=== PATIENT | male | born 1960 | race Caucasian/White ===

== ENCOUNTER 2018-07-21 15:30 | Outpatient (CLI) | payer BC, SELFPAY ==
[2018-07-21 16:31] LABS: Abs Immature Grans 0.05 k/cumm (0.0-0.09); Absolute Basophil Count 0.02 k/cumm (0.0-0.2); Absolute Eosinophil Count 0.12 k/cumm (0.0-0.7); Absolute Lymphocyte Count 1.86 k/cumm (1.2-3.4); Absolute Monocyte Count 0.78 k/cumm (0.11-0.7); Absolute Neutrophil Count 5.66 k/cumm (1.2-6.7); Basophils % 0.2; Eosinophils % 1.4; HGB 12.7 g/dL (13.5-17.5); Immature Grans % 0.6; Lymphocytes % 21.9; Mean Corp. HGB Concentration 33.4 g/dL (32.0-36.0); Mean Corpuscular Hemoglobin 33.4 pg (27.0-33.0); Mean Platelet Volume 9.8 fL (8.0-11.0); Monocytes % 9.2; Neutrophils % 66.7; Platelet Count 240 x1000/uL (130-400); RBC Distribution Width 12.9 % (11.8-14.1); White Blood Cell Count 8.49 k/cumm (4.4-10.8)
[2018-07-21 17:05] LABS: ALT 34 U/L (12-78); AST 34 U/L (15-37); Albumin 3.1 g/dL (3.4-5.0); Alkaline Phosphatase 51 U/L (46-116); Anion Gap 8.8 mmol/L (3-11); BUN 15 mg/dL (7-18); Bilirubin, Total 0.5 mg/dL (0.2-1.0); CO2 26.2 mmol/L (21.0-32.0); CREATININE 0.92 mg/dL (0.70-1.30); Calcium 8.5 mg/dL (8.5-10.1); Chloride 102 mmol/L (98-107); Glucose 92 mg/dL (70-100); Sodium 137 mmol/L (136-145); Total Protein 6.6 g/dL (6.4-8.2)
[2018-07-25 10:53] LABS: Vitamin B12 792 pg/ml (211-911)
== END 2018-07-21 15:50 ==
PROVIDERS: PCP Family Medicine; Visit Provider Family Medicine
DX: Z00.00 Encounter for general adult medical examination without abnormal findings (principal); K21.9 Gastro-esophageal reflux disease without esophagitis; K52.9 Noninfective gastroenteritis and colitis, unspecified
CPT/HCPCS: 36415; 80053; 82607; 85025

== ENCOUNTER 2019-07-22 10:30 | Outpatient (CLI) | payer BC, SELFPAY ==
[2019-07-22 12:33] LABS: HCT 38.7 % (40.0-50.0); HGB 12.8 g/dL (13.5-17.5); Mean Corp. HGB Concentration 33.1 g/dL (32.0-36.0); Mean Corpuscular Hemoglobin 34.4 pg (27.0-33.0); Mean Platelet Volume 9.8 fL (8.0-11.0); Platelet Count 258 x1000/uL (130-400); RBC 3.72 m/cumm (4.50-6.00); RBC Distribution Width 13.5 % (11.8-14.1); White Blood Cell Count 7.59 k/cumm (4.4-10.8)
[2019-07-22 12:59] LABS: ALT 39 U/L (16-63); AST 38 U/L (15-37); Albumin 3.3 g/dL (3.4-5.0); Alkaline Phosphatase 66 U/L (46-116); Anion Gap 9.1 mmol/L (3-11); BUN 13 mg/dL (7-18); Bilirubin, Total 0.7 mg/dL (0.2-1.0); CO2 25.9 mmol/L (21.0-32.0); CREATININE 0.99 mg/dL (0.70-1.30); Calcium 8.8 mg/dL (8.5-10.1); Chloride 100 mmol/L (98-107); Cholesterol 254 mg/dL (<200); Glucose 104 mg/dL (74-106); Potassium 3.9 mmol/L (3.5-5.1); Sodium 135 mmol/L (136-145); TSH 1.26 uIU/mL (0.36-3.74); Total Protein 6.4 g/dL (6.4-8.2); Triglyceride 64 mg/dL (<150); Vitamin B12 466 pg/mL (193-986)
[2019-07-22 13:06] LABS: Calculated LDL 90 mg/dL (<100)
[2019-07-22 13:07] LABS: HDL Cholesterol 152 mg/dL (40-60)
== END 2019-07-22 10:50 ==
PROVIDERS: PCP Family Medicine; Visit Provider Family Medicine
DX: Z00.00 Encounter for general adult medical examination without abnormal findings (principal); R63.5 Abnormal weight gain; E53.8 Deficiency of other specified B group vitamins; I10 Essential (primary) hypertension; R94.31 Abnormal electrocardiogram [ECG] [EKG]
CPT/HCPCS: 36415; 80053; 80061; 85027; 82607; 84443

== ENCOUNTER 2019-08-17 00:03 | Outpatient (CLI) | payer BC, SELFPAY ==
--- NOTE | 2019-08-17 07:00 | DI.NM_ITS ---
APPROVED REPORT Exam: Pharmacologic Patient Location: Out-Patient Room/Bed: Stress Nurse: Alicia Noyola RN BMI: 32.88 Baseline Rhythm: Sinus Rhythm Indications: Per patient ???s record from a clinic visit on 07/29/2019: EKG changes with Q waves anter oseptal leads and Q waves inferior leads. Patient also reports hypotensive episode (66/40) with feeli ng of severe malaise and dizziness appriximately 3-4 months ago. Medical History Medical History: Sleep Apnea, GERD, Tachycardia, Severe DJD. Cardiac Medications: Aspirin, Metoprolol Tartrate. Allergies: No known drug allergies Cardiac Risk Factors: FHX of CAD, HTN, Asthma Previous Cardiac Procedures: None Pretest Chest Pain Characteristics: No chest pain Exercise History: Sedentary Physical Disabilities: Legs Lung Sounds: Clear to auscultation Heart Sounds: Regular Stress Test Details Test: Pharmacologic stress testing performed using 0.4 mg of regadenoson per 5 mL given IV over 10 s econds. Nuclear Acquisition: Rest Tc-99m/Stress Tc-99m 1 day Rest Isotope: Tc-99m Sestamibi. Dose: 12.2 Date: 08/17/2019 Injection Time: 0845 Stress Isotope: Tc-99m Sestamibi. Dose: 38.0 Date: 08/17/2019 Injection Time: 0955 HR Resting HR Supine: 82 bpm Max Heart Rate (APMHR): 160 bpm Target HR (85% APMHR): 136 bpm Max HR Achieved: 98 bpm % of APMHR: 61 BP Resting BP Supine: 158/96 mmHg Max BP: 166/90 mmHg ECG Resting ECG: Sinus Rhythm Stress ECG: Sinus Rhythm ST Change: Normal Arrhythmia: None Recovery ECG: Sinus Rhythm Recovery ST Change: Normal Recovery Arrhythmia: None Clinical Stress Symptoms: None reported per patient. Stress ECG Conclusion 1. This was a pharmacological stress test. 2. EKG during stress portion of the exam was nondiagnostic. Protocol Used: Regadenoson Stress Test Summary STAGE HR BP Symptoms NOTES Supine 82 158/96 1 min post Lexiscan injection 95 166/90 3 min post Lexiscan injection 87 160/100 6 min post Lexiscan injection 95 158/96 MPI Conclusion His ejection fraction was 59%: There were no wall motion abnormalities. There is no evidence of inducible ischemia on the imaging portion of this exam. This represents a normal SPECT stress test. Radiologist Interpretation Radiologist Interpretation by: Lion Lyman MD Interpretation Date/Time: 08/17/2019 15:56:53
[2019-08-17] MEDS: Regadenoson 0.4 MG/5 ML SYR IVP (10:19)
[2019-08-17] MEDS: Normal Saline Flush 10 ML SYR IVP (11:07)
== END 2019-08-17 00:23 ==
PROVIDERS: PCP Family Medicine; Visit Provider Family Medicine
DX: R94.31 Abnormal electrocardiogram [ECG] [EKG] (principal); R00.0 Tachycardia, unspecified; I10 Essential (primary) hypertension; K21.9 Gastro-esophageal reflux disease without esophagitis; Z82.49 Family history of ischemic heart disease and other diseases of the circulatory system
CPT/HCPCS: 78452; 93017; J2785

== ENCOUNTER 2019-11-24 12:08 | Outpatient (CLI) | payer BC, SELFPAY ==
--- NOTE | 2019-11-24 14:00 | DI.RAD_ITS ---
EXAM: XR CHEST 2V PA LATERAL CLINICAL HISTORY: Pedal edema, R60.0 TECHNIQUE: COMPARISON: CR PORTABLE CHEST ONE VIEW from 02/07/2014 FINDINGS: The heart is not enlarged. Lungs appear clear. No pleural effusion seen. Multiple vascular clips n oted in the region of the esophageal hiatus. No pleural effusion seen. IMPRESSION: No evidence of acute process.
[2019-11-24 14:45] LABS: Abs Immature Grans 0.11 k/cumm (0.0-0.09); Absolute Basophil Count 0.03 k/cumm (0.0-0.2); Absolute Eosinophil Count 0.11 k/cumm (0.0-0.7); Absolute Lymphocyte Count 1.52 k/cumm (1.2-3.4); Absolute Monocyte Count 0.61 k/cumm (0.11-0.7); Absolute Neutrophil Count 3.05 k/cumm (1.2-6.7); Basophils % 0.6; HCT 34.1 % (40.0-50.0); HGB 11.2 g/dL (13.5-17.5); Mean Corp. HGB Concentration 32.8 g/dL (32.0-36.0); Mean Corpuscular Hemoglobin 34.8 pg (27.0-33.0); Mean Corpuscular Volume 105.9 fL (80-95); Monocytes % 11.2; Neutrophils % 56.2; Platelet Count 249 x1000/uL (130-400); RBC 3.22 m/cumm (4.50-6.00); RBC Distribution Width 17.6 % (11.8-14.1); White Blood Cell Count 5.43 k/cumm (4.4-10.8)
[2019-11-24 14:46] LABS: Bilirubin Negative (Negative); Blood Negative (Negative); Clarity Clear (Clear); Glucose Negative (Negative); Ketones Negative (Negative); Leukocyte Esterase Negative (Negative); Nitrite Negative (Negative)
[2019-11-24 15:30] LABS: Diff Comment RBC Morph Reviewed
[2019-11-24 15:31] LABS: Macrocytosis 1+
[2019-11-24 15:55] LABS: ALT 125 U/L (16-63); AST 143 U/L (15-37); Albumin 2.8 g/dL (3.4-5.0); Alkaline Phosphatase 93 U/L (46-116); Anion Gap 9.1 mmol/L (3-11); BUN 10 mg/dL (7-18); Bilirubin, Total 0.8 mg/dL (0.2-1.0); CO2 25.9 mmol/L (21.0-32.0); CREATININE 0.94 mg/dL (0.70-1.30); Calcium 8.3 mg/dL (8.5-10.1); Chloride 101 mmol/L (98-107); Glucose 109 mg/dL (74-106); NT-proBNP 129 pg/mL (<300); Potassium 3.6 mmol/L (3.5-5.1); Sodium 136 mmol/L (136-145); TSH 1.26 uIU/mL (0.36-3.74); Total Protein 5.7 g/dL (6.4-8.2)
[2019-11-24 23:08] LABS: Folate 18.7 ng/mL (8.6-20.0); Vitamin B12 527 pg/mL (193-986)
== END 2019-11-24 12:28 ==
PROVIDERS: PCP Family Medicine; Visit Provider Family Medicine
DX: R53.83 Other fatigue (principal); R39.11 Hesitancy of micturition; D75.89 Other specified diseases of blood and blood-forming organs; R60.0 Localized edema
CPT/HCPCS: 80053; 71046; 81003; 82607; 82746; 83880; 84443; 85025

== ENCOUNTER 2020-03-20 16:00 | Emergency (ER) | payer BC, SELFPAY ==
[2020-03-20] VITALS (47 sets, daily range): BP systolic 89–145; BP diastolic 46–91; PULSE 70–94; RESP 9–24; TEMP 36.5; O2SAT 92–99
--- NOTE | 2020-03-20 16:00 | DI.CT_ITS ---
EXAM: CT CHEST/ABD/PEL W CLINICAL HISTORY: trauma, fall down 10 stair,altered mentation, +loc. TECHNIQUE: Imaging Protocol: Axial computed tomography images with coronal and sagittal reformatted images were created and reviewed CONTRAST MATERIAL: Intravenous: Omnipaque 350 Contrast volume:100 cc Oral: no COMPARISON: No exams were available for comparison FINDINGS: CHEST: Tracheobronchial tree: Patent where visualized. Mediastinum and [place]: No dominant adenopathy or fluid collection. Pulmonary parenchyma: No consolidation or dominant measurable mass. No architectural distortion. Pleura: No effusion or pneumothorax. Lymph nodes: Within normal limits. Aorta: Thoracic portion non-dilated. Heart: Normal size. Minimal coronary artery calcifications. Bones: Degenerative changes are seen in the spine. ABDOMEN: Liver: Normal density. No measurable mass. Gallbladder and biliary tract: No radiodense calculus or dilation. Pancreas: Normal density, no abnormal calcifications or inflammatory process. Spleen: Normal. Kidneys: Normal size, contour and axis. No radiodense stones or obstructive uropathy. No masses seen. Adrenal glands: No masses seen. Aorta: Abdominal portion non-dilated. Mild calcification. Lymph nodes: Within normal limits. PELVIS: Bladder: Symmetric distention, no gross wall thickening. Bowel: Surgical clips near the GE junction. Diverticulosis. Normal appendix. No obstruction or bow el wall thickening. Peritoneal cavity: No ascites, collection or mesenteric inflammatory response. No free air. Bones: Degenerative changes in the spine. No fracture. Reproductive organs: Within normal limits. Soft tissue hematoma is seen adjacent to the left gluteus kings. IMPRESSION: Soft tissue hematoma adjacent to the left gluteus kings. No evidence of fracture or internal organ injury. RADIATION DOSE DELIVERED: 1,834.43mGy.cm Total DLP DATA REPOSITORY: All CT scans at this facility are submitted to the National Radiology Data Registry (NRDR) Dose Index Registry (DIR) with the [employer] (ACR). RADIATION OPTIMIZATION: All CT scans at this facility use at least one of these dose optimization te chniques: automated exposure control; mA and/or kV adjustment per patient size (includes targeted exa ms where dose is matched to clinical indication); or iterative reconstruction.
--- NOTE | 2020-03-20 16:00 | DI.CT_ITS ---
EXAM: CT HEAD CERVICAL SPINE WO CLINICAL HISTORY: trauma, fall down 10 stair,altered mentation, +loc. TECHNIQUE: Imaging Protocol: Axial computed tomography images with coronal and sagittal reformatted images were created and reviewed COMPARISON: No exams were available for comparison FINDINGS: Head CT Ventricles and Extra axial spaces: Normal in size and morphology for the patient's age. Hemorrhage: None. Cerebral parenchyma: Mild atrophy. No mass or infarct. Midline shift: None. Brainstem/Cerebellum: Normal. Calvarium: Scalp swelling left parietal region.. No fracture. Visualized Paranasal sinuses/Mastoids: Clear. Cervical Spine CT BONES: Vertebral body heights are maintained. Alignment is normal. There is no evidence of acute frac ture. Degenerative disc changes and facet degenerative changes are seen . SOFT TISSUES: No paraspinal hematoma. The airway appears intact. Small right thyroid nodule. No pneumothorax is seen at the lung apices. IMPRESSION: Head CT: No acute abnormality. C-spine CT: Degenerative changes, no acute abnormality. Incidental right thyroid nodule. Ultrasound could be considered for further evaluation. RADIATION DOSE DELIVERED: LINK-TO-SR Total DLP DATA REPOSITORY: All CT scans at this facility are submitted to the National Radiology Data Registry (NRDR) Dose Index Registry (DIR) with the [employer] (ACR). RADIATION OPTIMIZATION: All CT scans at this facility use at least one of these dose optimization te chniques: automated exposure control; mA and/or kV adjustment per patient size (includes targeted exa ms where dose is matched to clinical indication); or iterative reconstruction.
[2020-03-20] MEDS: Lactated Ringers 1,000 ML 150 ML IV (16:05)
--- NOTE | 2020-03-20 16:12 | W.ED.GENAD ---
Discharge Plan Disposition Patient Disposition: HOME Condition: Serious Discharge Details Clinical Impression: Fall down stairs, Scalp hematoma, Thyroid nodule, Contusion of colon, AC separation, Colitis Primary Care Provider: Ankur Strickland ED Provider: Rodriguez Rodriguez Home Meds and New Rx's Prescriptions: No Action aspirin 81 mg tablet,delayed release (DR/EC) 81 mg PO DAILY Qty: 90 RF: 3 metoprolol tartrate 50 mg tablet 25 mg PO BID Qty: 60 RF: 5 furosemide 20 mg tablet 10 mg PO BID PRN (Reason: edema) Qty: 60 RF: 0 albuterol sulfate [Ventolin HFA] 90 mcg/actuation HFA aerosol inhaler 2 puff inhalation Q4H PRN (Reason: shortness of breath or wheezing) Qty: 18 RF: 11 celecoxib [Celebrex] 200 mg capsule 200 mg PO BID Qty: 60 RF: 3 potassium chloride 20 mEq tablet extended release 20 meq PO .QOD PRN (Reason: pedal edema) Qty: 30 RF: 5 cyanocobalamin (vitamin B-12) [Vitamin B-12] 1,000 MCG tablet, sublingual 1 tab Sublingual .3 X WEEKLY RF: 0 Flovent HFA 110 mcg/actuation HFA aerosol inhaler 1 inh IH BID Qty: 12 RF: 2 ferrous gluconate [Fergon] 240 mg (27 mg iron) tablet 240 mg PO DAILY RF: 0 Emergen-C 1,000 MG powder effervescent in packet 1,000 mg PO PRN PRNRF: 0 Cbd Oil 5 mg Sublingual DAILY RF: 0 Discharge Instructions Instructions: Acromioclavicular Separation (ED), Abuse of Alcohol (ED), Scalp Contusion in Adults (ED), Fall Prevention (ED), Colitis (ED) Additional Instructions: Please stop abusing alcohol. Please maintain a clear liquid diet today. You may advance your diet tomorrow morning to soft bland food like rice and then advance further tomorrow evening as tolerated. Use shoulder sling and follow-up with orthopedics. Call for an appointment. Please contact your primary care physician to arrange follow-up. Return to the ER for any worsening or new concerning symptoms. Referrals: [facility] [Provider Group] Ankur Strickland [Primary Care Provider] - Discharge Data Discharge Date/Time-TO BE ENTERED AT DEPARTURE: 03/20/20 22:35 Medical Decision Making <Norbert Mary MD - Last Filed: 04/08/20 18:44> 1700??59-year-old male with history of alcohol dependence here after fall down a flight of stairs with loss of consciousness, now confused, left occipital scalp hematoma noted. Airway intact. Hemodynamically intact. Patient also with left shoulder swelling and tenderness. Consider acute life-threatening intracranial traumatic hemorrhage. Plan to obtain CT of the head. Consider cervical spine fracture, will obtain CT cervical spine. Consider intrathoracic or intra-abdominal acute traumatic surgical process. Will obtain CT imaging. Initial labs reviewed and ethyl alcohol noted to be 250. 1746 --CT of the head interpreted by radiology: IMPRESSION: 1. Left parietal scalp swelling. No radiopaque foreign body. No acute calvarial fracture. 2. No evidence for acute transcortical infarct, acute intracranial hemorrhage, or mass effect. CT of the cervical spine interpreted by radiology: Impression: No acute fracture or traumatic subluxation, right thyroid lobe 1.4 cm hypodense nodule containing coarse calcifications. X-ray of the left shoulder interpreted by radiology: IMPRESSION: Acromioclavicular dissociation with elevated lateral clavicle. This could reflect ligamentous disruption, possibly acromioclavicular and coracoclavicular ligaments. No definite acute fracture. Shoulder is normally located. Plan to apply sling. --CT of the chest was interpreted by radiology: Impression: No acute abnormality in chest. No acute fracture or dislocation. CT of the abdomen pelvis interpreted by radiology: IMPRESSION: 1. In anterior abdomen, there is mural edema and pericolonic stranding in mid to distal transverse colon which could reflect small focal large bowel contusion in setting of blunt trauma. There is no free air or perforation. There is mild pericolonic stranding in large bowel distal to it which could reflect mild colitis. 2. No intra-abdominal hematoma. 3. Diffuse diverticulosis of large bowel. 4. No acute fracture or subluxation. No dislocation. --I reassessed the patient notes he has had recent GI upset with loose stool after eating a large amount of lasagna last night. He has no abdominal pain and continues to have no abdominal tenderness. Patient is much more alert and oriented. Attempted to ambulate the patient he was unsteady on his feet. Plan to give IV fluid and reassess patient for likely discharge. <Rodriguez Rodriguez MD - Last Filed: 03/20/20 22:27> pt now able to walk with steady gait, suspect his earlier difficulty with ambulation could be from mild concussion and also alcohol intoxication. He is hd stable with no abdominal tenderness, will d/c home and have him f/u with pcp, return precautions given HPI <Norbert Mary MD - Last Filed: 04/08/20 18:44> General Mode of arrival: EMS. Date/Time Provider Initiated Documentation: 03/20/20 16:09. Limitations to Documentation: altered mental status. Information obtained by: patient and EMS. HPI Narrative: 59-year-old male with prior history of alcohol dependence, here after unwitnessed fall down 10 stairs with complaint of head pain. Patient is altered which limits history and review of systems. EMS notes that they responded to seen to find patient at bottom of the stairs. He had lost consciousness. A c-collar was applied and patient refused stretcher and walked up the stairs. Patient has been confused in route to [facility]. Related Data Home Medications Medication Instructions Recorded Confirmed cyanocobalamin (vitamin B-12) 1 tab SUBLINGUAL .3 X WEEKLY 09/16/12 03/30/20 [Vitamin B-12] Cbd Oil 5 mg SUBLINGUAL DAILY 09/19/17 03/30/20 Emergen-C 1,000 mg PO PRN PRN 09/19/17 03/30/20 aspirin 81 mg tablet,delayed 81 mg PO DAILY #90 tab 07/22/19 03/30/20 release metoprolol tartrate 50 mg tablet 25 mg PO BID #60 tab 07/22/19 03/30/20 fluticasone propionate 110 1 inh IH BID #12 gm 11/18/19 03/30/20 mcg/actuation HFA aerosol inhaler potassium chloride 20 mEq 20 meq PO .QOD PRN #30 tab 12/29/19 03/30/20 tablet,extended release albuterol sulfate 90 mcg/actuation 2 puff INHALATION Q4H PRN #18 g 03/28/20 03/30/20 aerosol inhaler furosemide 20 mg tablet 10 mg PO BID PRN #60 tab 03/28/20 03/30/20 celecoxib 200 mg capsule 200 mg PO BID #60 cap 03/30/20 03/30/20 ferrous gluconate 240 mg (27 mg 240 mg PO DAILY 03/31/20 iron) tablet Previous Rx's Medication Instructions Recorded aspirin 81 mg tablet,delayed 81 mg PO DAILY #90 tab 07/22/19 release metoprolol tartrate 50 mg tablet 25 mg PO BID #60 tab 07/22/19 fluticasone propionate 110 1 inh IH BID #12 gm 11/18/19 mcg/actuation HFA aerosol inhaler potassium chloride 20 mEq 20 meq PO .QOD PRN #30 tab 12/29/19 tablet,extended release albuterol sulfate 90 mcg/actuation 2 puff INHALATION Q4H PRN #18 g 03/28/20 aerosol inhaler furosemide 20 mg tablet 10 mg PO BID PRN #60 tab 03/28/20 celecoxib 200 mg capsule 200 mg PO BID #60 cap 03/30/20 Allergies Allergy/AdvReac Type Severity Reaction Status Date / Time No Known Allergies Allergy Verified 03/30/20 09:05 General Stated Complaint: Trauma CORBIN: 1 Review of Systems <Norbert Mary MD - Last Filed: 04/08/20 18:44> Narrative: Review of systems limited secondary to confusion and altered mental status Constitutional Constitutional: Denies fever(s) Cardiovascular Cardiovascular: Denies chest pain Gastrointestinal Gastrointestinal: Denies abdominal pain Musculoskeletal Musculoskeletal: Reports arthralgias (Left shoulder) PFSH <Norbert Mary MD - Last Filed: 04/08/20 18:44> Medical History Alcohol dependence HTN (hypertension) Surgical History Colonoscopy - MAC (09/23/17) GASTRECTOMY (~1976) PARTIAL laparoscopic ventral herniorrhaphy with lysis of adhesions (03/27/16) Family History Mother No problems noted. Father Diabetes Essential hypertension Brother Colon cancer Maternal Grandfather , 79 Heart disease Stroke Paternal Grandfather , 75 Heart disease Asthma Maternal Grandmother , 93 Pulmonary fibrosis Heart disease Stroke Paternal Grandmother , 72 Diabetes Heart disease Brother No problems noted. Son No problems noted. Social History Smoking/Tobacco Use Status: Former Tobacco Use Quit Date: 06/03/87 Smoking risk assessment performed?: Yes Alcohol Intake: current Alcohol Intake frequency: 3 or more drinks per day Alcohol type: beer Drug use: Rarely Substance use type: marijuana Counseling given: No Counseling provided: none Caregiver/Support person: Yes Household members: spouse Housing: house Communication Needs: None Pets and animals: No Sexually active: No Do you think of yourself as: straight/heterosexual Current gender identity: male What is your relationship status?: How often do you talk on the phone with friends or family?: three or more times per week How often do you get together with friends or relatives?: three or more times per week How often do you attend adventist or druze services?: 1-3 times per year Do you belong to any clubs or organized social groups?: no Panel score (0-1 are the most socially isolated patients): 2 What type of physical activity do you participate in: bicycling and weight lifting Duration: 15-30 minutes/day Frequency: 3-4 times per week Ladan/Tenriism: Baptist Special ladan needs: No Seatbelt use: always Helmet use: Yes Helmet use: always 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 Exam <Norbert Mary MD - Last Filed: 04/08/20 18:44> Const General: cooperative and other (Upset) Orientation: alert and awake HENMT Head: no Hightower's sign, no palpable skull fracture, no raccoon eyes, No periorbital ecchymosis and other (Hematoma left occipital scalp) General nose exam: external nose normal Face and sinus: normal facial exam Mouth: moist mucous membranes Throat: posterior oropharynx normal Eyes Conjunctivae: normal conjunctivae Sclera: normal sclerae Pupils: PERRL EOM: EOM intact bilaterally Neck Neck: trachea midline and supple Resp Auscultation: clear to auscultation bilaterally, no rales, no rhonchi and no wheezes Cardio Jugular venous pressure: no JVD Rate: regular rate and not tachycardic Rhythm: regular rhythm GI Palpation: soft, not firm, no guarding, no masses, not rigid and nontender Back/Spine/Pelvis Cervical Spine: collar present and No cervical spinal tenderness Thoracic/Lumbar Spine: thoracic and lumbar spine normal to inspection, No thoracic spinal tenderness and No lumbar spinal tenderness Skin General skin exam: no rashes or lesions noted Neuro General: patient alert, patient awake, oriented Patient Orientation: Person, Place and Confused and tone normal Cognition: abnormal cognition Motor: muscle tone normal throughout and strength 5/5 throughout Sensory Exam: no sensory deficits noted Extrem General: no edema Psych Appearance: grossly normal Mental Status: mental status grossly normal Speech and Movement: speech and movement normal Course <Norbert Mary MD - Last Filed: 04/08/20 18:44> Vital Signs Vital signs: Vital Signs Temperature 36.5 C 03/20/20 16:04 Pulse 80 03/20/20 16:04 Respiratory Rate 16 03/20/20 16:04 Blood Pressure 135/80 03/20/20 16:04 Pulse Oximetry 97 03/20/20 16:04 Temperature 36.5 C 03/20/20 16:04 Temperature Source Skin 03/20/20 16:04 Pulse 80 03/20/20 16:04 Respiratory Rate 16 03/20/20 16:04 Respiratory Effort Non-Labored 03/20/20 16:04 Blood Pressure 135/80 03/20/20 16:04 Blood Pressure Position Supine 03/20/20 16:04 Pulse Oximetry 97 03/20/20 16:04 Oxygen Delivery Method Room Air 03/20/20 16:04 Oxygen Flow Rate 0 03/20/20 16:04 Pain Level 4 03/20/20 16:04 Sign Out <Norbert Mary MD - Last Filed: 04/08/20 18:44> Sign Out Data: Sign Out Comment: Reassess patient for disposition. Plan to ensure patient can ambulate and is clinically sober with no abdominal pain or tenderness and remains hemodynamically stable. Last updated by Norbert Mary MD at 03/20/20 20:43
[2020-03-20 16:26] LABS: Abs Immature Grans 0.06 10^3/uL (0.0-0.06); Absolute Basophil Count 0.03 10^3/uL (0.0-0.2); Absolute Eosinophil Count 0.17 10^3/uL (0.0-0.7); Absolute Lymphocyte Count 2.15 10^3/uL (1.2-3.4); Absolute Monocyte Count 0.61 10^3/uL (0.1-0.8); Basophils % 0.3; Eosinophils % 1.8; HCT 40.6 % (40.0-50.0); HGB 13.6 g/dL (13.5-17.5); Immature Grans % 0.6; Lymphocytes % 23.1; MCH 30.8 pg (27.0-33.0); MCHC 33.5 % (32.0-36.0); MCV 91.9 fL (80-95); MPV 9.6 fL (8.0-11.0); Monocytes % 6.5; Neutrophils % 67.7; Nucleated RBC 0 %; Platelet Count 268 10^3/uL (130-400); RBC 4.42 10^6/uL (4.36-5.78); RDW 12.9 % (11.8-14.1); RDW-SD 43.4 fL; WBC 9.32 10^3/uL (4.4-10.8)
[2020-03-20] MEDS: Omnipaque 350 MG/ML 100 ML BTL IJ (16:31)
[2020-03-20] MEDS: Normal Saline - Diluent 50 ML VIAL IV (16:32)
--- NOTE | 2020-03-20 16:47 | DI.RAD_ITS ---
EXAM: XR SHOULDER LT COMPLETE 2+V CLINICAL HISTORY: trauma, fall down 10 stair, pain. TECHNIQUE: 2D digital imaging was performed. COMPARISON: No exams were available for comparison FINDINGS: BONES: No acute fracture is present. No bony destructive lesion is seen. JOINTS: The clavicle projects superior to the acromion, consistent with acromioclavicular separation. The coracoclavicular distance is mildly widened. The glenohumeral joint appears intact. SOFT TISSUE: Normal. IMPRESSION: AC separation. DATA REPOSITORY: RADIATION DOSE DELIVERED:
[2020-03-20 16:48] LABS: ALT 28 U/L (16-63); AST 18 U/L (15-37); Albumin 3.4 g/dL (3.4-5.0); Alkaline Phosphatase 66 U/L (46-116); Anion Gap 9.2 mmol/L (3-11); BUN 12 mg/dL (7-18); Bilirubin, Total 0.7 mg/dL (0.2-1.0); CO2 29.8 mmol/L (21.0-32.0); CREATININE 0.98 mg/dL (0.70-1.30); Calcium 8.7 mg/dL (8.5-10.1); Chloride 98 mmol/L (98-107); Glucose 108 mg/dL (74-106); Potassium 3.8 mmol/L (3.5-5.1); Sodium 137 mmol/L (136-145); Total Protein 7.1 g/dL (6.4-8.2)
[2020-03-20 16:50] LABS: ETHANOL BLOOD 250.7 mg/dL (<3)
[2020-03-20] MEDS: Normal Saline Flush 10 ML SYR IVP (17:00)
--- NOTE | 2020-03-20 17:03 | DI.VRAD_ITS ---
PROCEDURE INFORMATION: Exam: XR Left Shoulder Exam date and time: 03/20/2020 4:38 PM Age: 59 years old Clinical indication: Injury or trauma; Fall; Blunt trauma (contusions or hematomas); Shoulder; Left TECHNIQUE: Imaging protocol: XR Left shoulder. Views: 2 or more views. COMPARISON: No relevant prior studies available. FINDINGS: Bones/joints: There is acromioclavicular dislocation with elevated lateral clavicle. This could reflect ligamentous disruption, possibly acromioclavicular and coracoclavicular ligaments. Shoulder is normally located. There is no acute fracture. Lungs: Visualized lungs are clear. Soft tissues: There is subjacent soft tissue swelling, most pronounced superior to lateral clavicle. IMPRESSION: Acromioclavicular dissociation with elevated lateral clavicle. This could reflect ligamentous disruption, possibly acromioclavicular and coracoclavicular ligaments. No definite acute fracture. Shoulder is normally located. Dictated and Authenticated by: Reji Clarke MD. Ordering:LIBRA Toussaint MD
--- NOTE | 2020-03-20 17:08 | DI.VRAD_ITS ---
PROCEDURE INFORMATION: Exam: CT Head Without Contrast Exam date and time: 03/20/2020 4:22 PM Age: 59 years old Clinical indication: Injury or trauma; Fall; Blunt trauma (contusions or hematomas); With loss of consciousness; Not specified TECHNIQUE: Imaging protocol: Computed tomography of the head without contrast. COMPARISON: No relevant prior studies available. FINDINGS: Brain: Age-related involutional changes and chronic microvascular ischemic disease. No evidence for acute transcortical infarct. No mass effect or midline shift. No extra-axial collection. No acute intracranial hemorrhage. Basal cisterns are patent. Cerebral ventricles: No ventriculomegaly. Bones/joints: No acute calvarial fracture. Paranasal sinuses: Visualized sinuses are unremarkable. No fluid levels. Mastoid air cells: Visualized mastoid air cells are well aerated. Soft tissues: Left parietal scalp swelling. No radiopaque foreign body. IMPRESSION: 1. Left parietal scalp swelling. No radiopaque foreign body. No acute calvarial fracture. 2. No evidence for acute transcortical infarct, acute intracranial hemorrhage, or mass effect. PROCEDURE INFORMATION: Exam: CT Cervical Spine Without Contrast Exam date and time: 03/20/2020 4:22 PM Age: 59 years old Clinical indication: Injury or trauma; Fall; Blunt trauma (contusions or hematomas); With loss of consciousness; Not specified TECHNIQUE: Imaging protocol: Computed tomography images of the cervical spine without contrast. COMPARISON: No relevant prior studies available. FINDINGS: Vertebrae: No acute fracture or traumatic subluxation. No spondylolisthesis. The atlantooccipital and atlantoaxial articulations are intact. Facet joint alignments are maintained. Discs/Spinal canal/Neural foramina: Age-related degenerative disc disease. Multilevel degenerative changes of the cervical spine. Other bones/joints: Occipital condyles are intact. Prevertebral Space: No prevertebral soft tissue swelling. Soft tissues: Unremarkable. Thyroid: Right thyroid lobe 1.4 cm hypodense nodule containing coarse calcifications. Lungs: Lung apices are normal. IMPRESSION: No acute fracture or traumatic subluxation. Dictated and Authenticated by: Robert Thao MD. Ordering:LIBRA Toussaint MD
--- NOTE | 2020-03-20 17:56 | DI.VRAD_ITS ---
PROCEDURE INFORMATION: Exam: CT Chest With Contrast Exam date and time: 03/20/2020 4:28 PM Age: 59 years old Clinical indication: Injury or trauma; Fall; Upper; Blunt trauma (contusions or hematomas) TECHNIQUE: Imaging protocol: Computed tomography of the chest with intravenous contrast. COMPARISON: No relevant prior studies available. FINDINGS: Lungs: There is mild apical pleuroparenchymal thickening. There is left basilar atelectasis. Pleural space: Unremarkable. No pneumothorax. No pleural effusion. Heart: Unremarkable. No cardiomegaly. No pericardial effusion. Mediastinal space: There are surgical changes in gastroesophageal junction. Aorta: Unremarkable. No aortic aneurysm. Lymph nodes: Unremarkable. No enlarged lymph nodes. Bones/joints: Osseous structures demonstrate no acute abnormality. Soft tissues: Unremarkable. IMPRESSION: 1. No acute abnormality in chest. 2. No acute fracture or dislocation. PROCEDURE INFORMATION: Exam: CT Abdomen And Pelvis With Contrast Exam date and time: 03/20/2020 4:28 PM Age: 59 years old Clinical indication: Injury or trauma; Fall; Upper; Blunt trauma (contusions or hematomas) TECHNIQUE: Imaging protocol: Computed tomography of the abdomen and pelvis with intravenous contrast. COMPARISON: No relevant prior studies available. FINDINGS: Mediastinal space: There is small hiatal hernia. Liver: Normal. No mass. Gallbladder and bile ducts: Normal. No calcified stones. No ductal dilation. Pancreas: Normal. No ductal dilation. Spleen: Normal. No splenomegaly. Adrenals: Normal. No mass. Kidneys and ureters: Normal. No hydronephrosis. Stomach and bowel: There is diffuse diverticulosis of large bowel, most pronounced in sigmoid colon. There is focal pericolonic fat stranding and mural edema in mid to distal transverse colon (image 55 series 4). There is mild diffuse stranding in large bowel, distal to this. Appendix: Appendix is normal. Intraperitoneal space: Unremarkable. No free air. No significant fluid collection. Vasculature: Unremarkable. No abdominal aortic aneurysm. Lymph nodes: Unremarkable. No enlarged lymph nodes. Urinary bladder: Unremarkable as visualized. Reproductive: Unremarkable as visualized. Bones/joints: There are degenerative changes in lumbar spine. There is no focal lytic or blastic lesion. Soft tissues: Unremarkable. IMPRESSION: 1. In anterior abdomen, there is mural edema and pericolonic stranding in mid to distal transverse colon which could reflect small focal large bowel contusion in setting of blunt trauma. There is no free air or perforation. There is mild pericolonic stranding in large bowel distal to it which could reflect mild colitis. 2. No intra-abdominal hematoma. 3. Diffuse diverticulosis of large bowel. 4. No acute fracture or subluxation. No dislocation. Dictated and Authenticated by: Reji Clarke MD. Ordering:LIBRA Toussaint MD
--- NOTE | 2020-03-20 19:54 | NUR.NOTE ---
Nursing Note:C-Collar removed by Dr. Mary. PO fluids given to patient. Patient talking to to get phone number of friend to pick him up.
== END 2020-03-20 22:35 | disposition home or self-care (01) ==
PROVIDERS: Student in an Organized Health Care Education/Training Program; Emergency Provider Emergency Medicine; PCP Family Medicine
DX: S00.03XA Contusion of scalp, initial encounter (principal); S36.521A Contusion of transverse colon, initial encounter; S43.102A Unspecified dislocation of left acromioclavicular joint, initial encounter; W10.8XXA Fall (on) (from) other stairs and steps, initial encounter; K52.9 Noninfective gastroenteritis and colitis, unspecified; R93.7 Abnormal findings on diagnostic imaging of other parts of musculoskeletal system; F10.220 Alcohol dependence with intoxication, uncomplicated; Y90.8 Blood alcohol level of 240 mg/100 ml or more; I10 Essential (primary) hypertension
CPT/HCPCS: 36415; 74177; 80053; 86850; 86900; 86901; 96360; 96361; 99285; 70450; 71260; 72125; 73030; 80320; 85025; 85610; J3490; L3650

== ENCOUNTER 2020-03-24 15:44 | Emergency (ER) | payer BC, SELFPAY ==
[2020-03-24 15:47] VITALS: BP 135/78; PULSE 75; RESP 18; TEMP 36.6; O2SAT 99
--- NOTE | 2020-03-24 16:17 | ED.GENADUL_ITS ---
Discharge Plan Disposition Patient Disposition: HOME Condition: Stable Discharge Details Clinical Impression: Hematoma and contusion Primary Care Provider: Ankur Strickland ED Provider: Pb Patricio Home Meds and New Rx's Prescriptions: Continued aspirin 81 mg tablet,delayed release (DR/EC) 81 mg PO DAILY Qty: 90 RF: 3 metoprolol tartrate 50 mg tablet 25 mg PO BID Qty: 60 RF: 5 colestipol 1 gram tablet 5 gm PO ONCE Qty: 150 RF: 11 furosemide 20 mg tablet 20 mg PO QAM PRN (Reason: edema) Qty: 60 RF: 5 potassium chloride 20 mEq tablet extended release 20 meq PO .QOD PRN (Reason: pedal edema) Qty: 30 RF: 5 cyanocobalamin (vitamin B-12) [Vitamin B-12] 1,000 MCG tablet, sublingual 1 tab Sublingual .3 X WEEKLY RF: 0 albuterol sulfate [ProAir HFA] 90 mcg/actuation HFA aerosol inhaler 2 puff Inhalation Q4H PRN 60 Days Qty: 8.5 RF: 11 hydrocodone-acetaminophen 5-325 mg tablet 1 tab PO DAILY MDD 5mg Qty: 30 RF: 0 hydrocodone-acetaminophen 5-325 mg tablet 1 tab PO DAILY MDD 1 PRN (Reason: pain) Qty: 30 RF: 0 Flovent HFA 110 mcg/actuation HFA aerosol inhaler 1 inh IH BID Qty: 12 RF: 2 hydrocodone-acetaminophen 5-325 mg tablet 1 tab PO DAILY MDD 5mg PRN (Reason: pain) Qty: 30 RF: 0 Emergen-C 1,000 MG powder effervescent in packet 1,000 mg PO PRN PRNRF: 0 Cbd Oil 5 mg Sublingual DAILY RF: 0 Discharge Instructions Instructions: Hematoma (ED) Additional Instructions: Having some spreading bruising after trauma can be completely normal. Your blood pressure is appropriate at 135/78 and hyour pulse is 75. It is very common for gravity to begin to draw the bruising further South on your body. It can take up to 1-2 months for the hematoma to completely absorb and resolve. Please watch for new or worsening symptoms and return to the ER for any concerns. You may find that alternating between cool and/or warm compresses every 2 hours for 20 minutes is beneficial. Please follow-up with your primary care provider on Saturday and your orthopedic provider on Saturday as already scheduled. Medical Decision Making 59-year-old gentleman who is not anticoagulated, fell downstairs and was evaluated in the ER [address] imaging was subsequently discharged home with a diagnosis of left AC separation. He is scheduled to be seen by his primary care provider on Saturday and orthopedics on Saturday. Since the time of the injury he noticed some bruising that has now spreading. He appears well, nontoxic. Reports that the area is really not tender and he has not had any additional trauma. Patient appears well, nontoxic. He is ambulating baseline using a cane. Normal pedal pulses. Negative Homans' sign. Blood pressure 135/78 and a pulse of 75. Patient denies any weakness, feeling lightheaded, shortness of breath, chest pain. There is no evidence of hypotension or tachycardia. He is neuro, vascular, tendon intact. No obvious compensation from continuation of hemorrhaging. We discussed the presentation status post trauma 4 days ago. Patient has already had CT imaging of his abdomen and pelvis. At this time he appears well, nontoxic and is neurologically intact. I do not believe that any additional imaging or laboratory values are indicated. Likely delayed and spreading ecchymosis. Patient is comfortable this plan and has no additional questions or concerns. He will follow up with his primary care provider on Saturday, orthopedics on Saturday, and return to the ER for new or worsening symptoms in the meantime. Medical Records Medical records reviewed: Yes I reviewed the patient's medical records. HPI General Mode of arrival: ambulatory . Date/Time Provider Initiated Documentation: 03/24/20 15:52 . Limitations to Documentation: no limitations . Information obtained by: patient . HPI Narrative: This is a 59-year-old male presenting for concern of worsening bruising to his left hip area. Patient has a past medical history that includes alcohol dependence, hypertension, chronic pain disorder, GERD, who fell downstairs and was seen in the ER on 03-20-20. He was treated as a trauma and subsequently discharged after CT imaging of his head, C-spine, chest, abdomen and pelvis were completed. He was discharged with a left AC joint separation. He is currently wearing a sling. He is scheduled to be seen by his primary care provider on Saturday and with orthopedics on Saturday. The day after the fall he noticed a small amount of bruising to his left lower back-upper buttocks, subsequently since that time the bruising has spread and patient is concerned. He denies any additional trauma since his evaluation 4 days ago. He denies headache, shortness of breath, chest pain, abdominal pain, nausea, vomiting, numbness, tingling, weakness. He does report that he has some chest wall soreness associated with the AC joint injury but no additional chest pain. He does take a baby aspirin daily but is not otherwise anticoagulated. He denies any discomfort at the site of the ecchymosis. Related Data Home Medications Medication Instructions Recorded Confirmed cyanocobalamin (vitamin B-12) 1 tab SUBLINGUAL .3 X WEEKLY 09/16/12 03/24/20 [Vitamin B-12] Cbd Oil 5 mg SUBLINGUAL DAILY 09/19/17 03/24/20 Emergen-C 1,000 mg PO PRN PRN 09/19/17 03/24/20 colestipol 1 gram tablet 5 gm PO ONCE #150 tab 07/21/18 03/24/20 albuterol sulfate 90 mcg/actuation 2 puff INHALATION Q4H PRN 60 Days 07/07/19 03/24/20 aerosol inhaler #8.5 gm aspirin 81 mg tablet,delayed 81 mg PO DAILY #90 tab 07/22/19 03/24/20 release metoprolol tartrate 50 mg tablet 25 mg PO BID #60 tab 07/22/19 03/24/20 hydrocodone 5 mg-acetaminophen 325 1 tab PO DAILY #30 tab MDD 5mg 09/03/19 03/24/20 mg tablet hydrocodone 5 mg-acetaminophen 325 1 tab PO DAILY PRN #30 tab MDD 1 09/03/19 03/24/20 mg tablet fluticasone propionate 110 1 inh IH BID #12 gm 11/18/19 03/24/20 mcg/actuation HFA aerosol inhaler furosemide 20 mg tablet 20 mg PO QAM PRN #60 tab 12/29/19 03/24/20 potassium chloride 20 mEq 20 meq PO .QOD PRN #30 tab 12/29/19 03/24/20 tablet,extended release hydrocodone 5 mg-acetaminophen 325 1 tab PO DAILY PRN #30 tab MDD 5mg 02/29/20 03/24/20 mg tablet Previous Rx's Medication Instructions Recorded colestipol 1 gram tablet 5 gm PO ONCE #150 tab 07/21/18 albuterol sulfate 90 mcg/actuation 2 puff INHALATION Q4H PRN 60 Days 07/07/19 aerosol inhaler #8.5 gm aspirin 81 mg tablet,delayed 81 mg PO DAILY #90 tab 07/22/19 release metoprolol tartrate 50 mg tablet 25 mg PO BID #60 tab 07/22/19 hydrocodone 5 mg-acetaminophen 325 1 tab PO DAILY #30 tab MDD 5mg 09/03/19 mg tablet hydrocodone 5 mg-acetaminophen 325 1 tab PO DAILY PRN #30 tab MDD 1 09/03/19 mg tablet fluticasone propionate 110 1 inh IH BID #12 gm 11/18/19 mcg/actuation HFA aerosol inhaler furosemide 20 mg tablet 20 mg PO QAM PRN #60 tab 12/29/19 potassium chloride 20 mEq 20 meq PO .QOD PRN #30 tab 12/29/19 tablet,extended release hydrocodone 5 mg-acetaminophen 325 1 tab PO DAILY PRN #30 tab MDD 5mg 02/29/20 mg tablet Allergies Allergy/AdvReac Type Severity Reaction Status Date / Time No Known Allergies Allergy Verified 03/24/20 15:54 General Stated Complaint: Orthopedic CORBIN: 4 Review of Systems Constitutional Constitutional: Denies fatigue, Denies fever(s), Denies headache(s) and Denies weakness Eyes Eyes: Denies change in vision ENT Ears, Nose, Mouth, and Throat: Denies headache(s) and Denies neck pain Cardiovascular Cardiovascular: Denies chest pain and Denies dyspnea Respiratory Respiratory: Denies cough and Denies dyspnea Gastrointestinal Gastrointestinal: Denies abdominal pain, Denies nausea and Denies vomiting Musculoskeletal Musculoskeletal: Denies back pain, Denies arthralgias, Denies neck pain, Denies numbness, Denies stiffness and Denies tingling Neurologic Neurologic: Denies headache(s), Denies numbness, Denies tingling and Denies weakness Endocrine Endocrine: Denies fatigue Hematologic/Lymphatic Hematologic/Lymphatic: Denies easy bleeding and Denies easy bruising PFSH Medical History Alcohol dependence HTN (hypertension) Surgical History Colonoscopy - MAC (09/23/17) GASTRECTOMY (~1976) PARTIAL laparoscopic ventral herniorrhaphy with lysis of adhesions (03/27/16) Family History Mother No problems noted. Father Diabetes Essential hypertension Brother Colon cancer Maternal Grandfather , 79 Heart disease Stroke Paternal Grandfather , 75 Heart disease Asthma Maternal Grandmother , 93 Pulmonary fibrosis Heart disease Stroke Paternal Grandmother , 72 Diabetes Heart disease Brother No problems noted. Son No problems noted. Social History Smoking/Tobacco Use Status: Former Tobacco Use Quit Date: 06/03/87 Alcohol Intake: current Alcohol Intake frequency: 3 or more drinks per day Alcohol type: beer Drug use: Rarely Substance use type: marijuana Counseling given: No Counseling provided: none Caregiver/Support person: Yes Household members: spouse Housing: house Communication Needs: None Pets and animals: No Sexually active: No Do you think of yourself as: straight/heterosexual Current gender identity: male What is your relationship status?: How often do you talk on the phone with friends or family?: three or more times per week How often do you get together with friends or relatives?: three or more times per week How often do you attend rastafari or hoahaoism services?: 1-3 times per year Do you belong to any clubs or organized social groups?: no Panel score (0-1 are the most socially isolated patients): 2 What type of physical activity do you participate in: bicycling and weight lifting Duration: 15-30 minutes/day Frequency: 3-4 times per week Ladan/Yazidism: Restoration Special ladan needs: No Seatbelt use: always Helmet use: Yes Helmet use: always Drive intox or ride w/intox petroleum transport driver: No Exam Const General: cooperative, healthy appearing, comfortable and no acute distress Orientation: alert, awake and oriented x3 HENMT Head: normal to inspection, normocephalic and atraumatic Face and sinus: normal facial exam Mouth: moist mucous membranes Eyes Conjunctivae: conjunctivae normal Sclera: sclerae normal Neck Neck: normal visual inspection, full ROM, trachea midline and supple Chest Chest: no crepitus and tenderness Chest/axillae images: 1. Minimal ecchymosis was localized discomfort. Skin is intact. Resp Effort & Inspection: normal respiratory effort and able to speak in complete sentences Auscultation: clear to auscultation bilaterally Cardio Rate: regular rate Rhythm: regular rhythm GI Palpation: soft and nontender Back/Spine/Pelvis Back: No no CVA tenderness and No back tenderness Back/spine/pelvis image: 1. Minimally tender ecchymosis. There is no midline bony point tenderness, no deformity. Skin is intact. Skin Other: Ecchymosis as already described, otherwise unremarkable Neuro General: patient alert, patient awake, patient oriented x3, moves all extremities and no focal motor deficits Cognition: normal cognition Speech: speech normal Gait: gait assisted (With a cane, steady) Motor: muscle tone normal throughout, strength 5/5 throughout and other (Patient does have baseline right ankle deformity status post trauma) Sensory Exam: no sensory deficits noted Extrem General: capillary refill normal, no pedal edema and no calf tenderness Left lower extremity: full ROM and normal capillary refill; no cyanosis and no e amando Other: Patient with baseline right ankle deformity status post trauma. Unable to fully range that ankle. He has ecchymosis that extends from his left lumbar region down to the lateral-posterior mid thigh. Patient has full range of motion of his left leg. No bony point tenderness. Normal pedal pulses. Negative Homans' sign. Skin is intact Psych Appearance: grossly normal Mental Status: mental status grossly normal Course Vital Signs Vital signs: Vital Signs Temperature 36.6 C 03/24/20 15:47 Pulse 75 03/24/20 15:47 Respiratory Rate 18 03/24/20 15:47 Blood Pressure 135/78 03/24/20 15:47 Pulse Oximetry 99 03/24/20 15:47 Temperature 36.6 C 03/24/20 15:47 Pulse 75 03/24/20 15:47 Respiratory Rate 18 03/24/20 15:47 Respiratory Effort Non-Labored 03/24/20 15:53 Blood Pressure 135/78 03/24/20 15:47 Blood Pressure Position Sitting 03/24/20 15:47 Pulse Oximetry 99 03/24/20 15:47 Oxygen Delivery Method Room Air 03/24/20 15:47 Oxygen Flow Rate 0 03/24/20 15:47 Pain Level 7 03/24/20 15:47 Comment 03/24/20 15:47
== END 2020-03-24 16:40 | disposition home or self-care (01) ==
PROVIDERS: Emergency Provider Physician Assistant; PCP Family Medicine
DX: S70.02XA Contusion of left hip, initial encounter (principal); W10.8XXA Fall (on) (from) other stairs and steps, initial encounter; I10 Essential (primary) hypertension
CPT/HCPCS: 99282; 99283

== ENCOUNTER 2020-03-31 01:29 | Outpatient (CLI) | payer BC, SELFPAY ==
--- NOTE | 2020-03-31 08:00 | DI.US_ITS ---
EXAM: US THYROID CLINICAL HISTORY: Right thyroid nodule noted on CT scan of neck,e04.1 TECHNIQUE: Ultrasound performed using standard protocol. COMPARISON: No exams were available for comparison FINDINGS: Thyroid ultrasound was performed according to the usual protocol. Right thyroid lobe measures 36 x 1 4 x 16 millimeters and left thyroid lobe measures 40 x 11 x 17 millimeters. Thyroid parenchyma is somewhat heterogeneous. The isthmus is about 5 millimeters in thickness. There is a 14 millimeter in diameter nodule of the inferior pole of the right thyroid lobe, this is s olid echogenicity and is hypoechoic, it is wider than tall and has smooth margins. There are macroca lcifications associated with this lesion. This lesion is a TR 4 lesion by TI-RADS classification. An additional 5 millimeter nodule is seen, TR 4 classification, also in the inferior pole of the righ t thyroid lobe IMPRESSION: Two right lobe inferior pole thyroid nodules are identified, the larger is 14 millimeters in diameter and is a TR 4 lesion by TI-RADS classification, six-month follow-up ultrasound recommended. DATA REPOSITORY:
== END 2020-03-31 01:49 ==
PROVIDERS: PCP Family Medicine; Visit Provider Family Medicine
DX: E04.2 Nontoxic multinodular goiter (principal)
CPT/HCPCS: 76536

== ENCOUNTER 2020-04-06 11:01 | Outpatient (CLI) | payer BC, SELFPAY ==
[2020-04-10 17:21] LABS: Patient Race White; SARS-CoV-2 RNA Undetected (Undetected); SARS-CoV-2 Specimen Source Nasal
== END 2020-04-06 11:21 ==
PROVIDERS: PCP Family Medicine; Visit Provider Family Medicine
DX: J06.9 Acute upper respiratory infection, unspecified (principal)
CPT/HCPCS: U0003

== ENCOUNTER 2020-08-01 02:13 | Outpatient (CLI) | payer BC, SELFPAY ==
--- NOTE | 2020-08-01 08:00 | DI.RAD_ITS ---
EXAM: XR CHEST 2V PA LATERAL CLINICAL HISTORY: chronic cough,R05 TECHNIQUE: 2D digital imaging was performed. COMPARISON: CR XR CHEST 2V PA LATERAL from 11/24/2019 FINDINGS: MEDIASTINUM: Normal. HEART: Normal. PULMONARY VASCULATURE: Normal. LUNGS: Clear. PLEURAL SPACE: No pleural effusion or pneumothorax. BONE:Within normal limits for the patient's age. OTHER FINDINGS:Surgical clips are again seen at the gastroesophageal junction. IMPRESSION: No acute pulmonary findings. DATA REPOSITORY: RADIATION DOSE DELIVERED:
== END 2020-08-01 02:33 ==
PROVIDERS: PCP Family Medicine; Visit Provider Nurse Practitioner Family
DX: R05 Cough (principal)
CPT/HCPCS: 71046

== ENCOUNTER 2020-08-01 04:33 | Outpatient (CLI) | payer BC, SELFPAY ==
[2020-08-01 12:25] LABS: ALT 33 U/L (16-63); AST 22 U/L (15-37); Albumin 3.4 g/dL (3.4-5.0); Alkaline Phosphatase 61 U/L (46-116); Anion Gap 5.4 mmol/L (3-11); BUN 10 mg/dL (7-18); Bilirubin, Total 0.4 mg/dL (0.2-1.0); CO2 26.6 mmol/L (21.0-32.0); CREATININE 0.9 mg/dL (0.70-1.30); Calcium 8.7 mg/dL (8.5-10.1); Calculated LDL 76 mg/dL (<100); Chloride 105 mmol/L (98-107); Cholesterol 205 mg/dL (<200); Glucose 112 mg/dL (74-106); HDL Cholesterol 112 mg/dL (40-60); Sodium 137 mmol/L (136-145); TSH (W/Ref FT4) 1.82 uIU/mL (0.36-3.74); Total Protein 6.6 g/dL (6.4-8.2); Triglyceride 88 mg/dL (<150)
[2020-08-01 22:39] LABS: Thyroglobulin Antibody <15 U/mL (<=60); Thyroperoxidase Antibody <28 U/mL (<=60)
[2020-08-01 22:40] LABS: PSA, Screening 0.2 ng/mL (0.0-4.5)
== END 2020-08-01 04:34 | disposition home or self-care (01) ==
PROVIDERS: Nurse Practitioner Family; PCP Family Medicine; Visit Provider Family Medicine
DX: Z00.00 Encounter for general adult medical examination without abnormal findings (principal); E78.5 Hyperlipidemia, unspecified; E04.1 Nontoxic single thyroid nodule; F10.20 Alcohol dependence, uncomplicated; R60.0 Localized edema; Z12.5 Encounter for screening for malignant neoplasm of prostate; R79.89 Other specified abnormal findings of blood chemistry
CPT/HCPCS: 36415; 80053; 80061; 84153; 86376; 84443

== ENCOUNTER 2022-03-27 02:34 | Outpatient (CLI) | payer BC, SELFPAY | END 2022-03-27 02:35 | disposition home or self-care (01) | LOC: LBO 02:34 | PROVIDERS: PCP Nurse Practitioner Family; Visit Provider Nurse Practitioner Family | DX: I10 Essential (primary) hypertension (principal) | CPT/HCPCS: 36415; 82565; 84132 ==

== ENCOUNTER 2022-07-24 01:14 | Outpatient (CLI) | payer BC, SELFPAY ==
--- NOTE | 2022-07-24 07:15 | DI.US_ITS ---
Exam(s) US NEEDLE LOCAL OTHER WO RAD EXAM: tr5 lesion,thyroid nodule,e04.1, ultrasound guided bx COMPARISON: US US THYROID from 05/10/2022 TECHNIQUE: Ultrasound performed using standard protocol. FINDINGS: Sonography was provided for Dr. Escamilla during the performance of a biopsy of a thyroid nodule. Plea se refer to the procedure report for complete details. DATA REPOSITORY:
--- NOTE | 2022-07-24 11:20 | PAPNONF_PTH ---
PATIENT: Rodriguez Dupree LOC: [facility] U#:[id number] AGE/SX: 62/M ROOM: RE07/24/[address]: Bhupendra Escamilla MD : 1960 BED: DIS: 07/24/2022 SPEC #: [id number] RECD: 07/24/22 12:57 STATUS: BERNIEPietro REQ #: [id number] JYOTSNA: 07/24/22 11:[address]: Bhupendra Escamilla DEPT: [facility] Cytology RECD BY: Maria Esther Mi ENTERED: 07/24/22 12:58 SP TYPE: LIAM HAM DR: Juarez Aguilar, DAXA Tissues: 1 - BODY FLUID CYTO-FINE NEEDLE ASPIRATE-[facility] Procedures: BODY FLUID CYTO-FINE NEEDLE ASPIRATE-[facility] Comments: [id number] (PATH FNA CONSULT) (REFRIGERATED)
--- NOTE | 2022-07-24 12:05 | OPPNE_ITS ---
Date of service: 07/24/22 Time of Service: 12:05 Procedure Note Date of procedure: 07/24/22 Procedure: Ultrasound-guided FNA, right thyroid nodule, pathology available Surgeon/Proceduralist/Physician: Bhupendra Escamilla Procedure Diagnosis: Right TR 5 thyroid nodule Procedure Indications: The patient has a right-sided TR 5 lesion that reaches criteria for biopsy. Options were explained to the patient regarding further management. He elected undergo the above procedure. Consent was filled and signed prior to procedure. Procedure Description: The patient was positioned in supine position and prepped and draped in appropriate fashion. His neck was slightly extended. Ultrasound was used to visualize the right-sided thyroid nodule, and then 1% lidocaine with 1/100,000 epinephrine was injected into the skin and subcutaneous tissues overlying the nodule. Using the ultrasound to guide the needle, needle was carefully int roduced into the thyroid nodule, and biopsy was removed. Cellular adequacy was verified by pathology. Following this, 2 further passes for potential Afirma were made. The patient tolerated this procedure well. There was no significant bleeding. Sterile dressing was applied. The patient was allowed to sit and then stand and his vital signs remained stable. He was able to ambulate afterwards without difficulty. He will remove the bandage tonight and not replace it. He will call with any signs of infection. He will call if he does not hear from me within 1 week with regard to pathology. He had no further questions. He is comfortable with this plan. I was present throughout the entire procedure.
== END 2022-07-24 01:34 ==
LOC: DI 01:15
PROVIDERS: PCP Nurse Practitioner Family; Visit Provider Otolaryngology
DX: E04.1 Nontoxic single thyroid nodule (principal)
CPT/HCPCS: 10005; 76942; 88104

== ENCOUNTER 2023-04-22 09:15 | Day surgery (SDC) | payer BC, SELFPAY ==
--- NOTE | 2023-04-21 14:58 | W.PM.DSUDISC ---
Date of service: 04/22/23 Time of Service: 11:25 Discharge Plan Disposition Patient Disposition: Home Condition: Good Discharge Details Reason For Visit: screening colonoscopy Attending Provider: Michael Lyman Primary Care Provider: Juarez Aguilar Home Meds and New Rx's Prescriptions: Continued albuterol sulfate [ProAir HFA] 90 mcg/actuation HFA aerosol inhaler 2 puff inhalation 6XD PRN (Reason: shortness of breath or wheezing) Qty: 18 6RF aspirin 81 mg tablet,delayed release (DR/EC) 81 mg PO DAILY Qty: 90 3RF celecoxib [Celebrex] 200 mg capsule 200 mg PO BID Qty: 60 3RF Rx Instructions: TAKE 1 TABLET TWICE A DAY furosemide 20 mg tablet 10 mg PO BID PRN (Reason: edema) Qty: 90 4RF gabapentin 100 mg capsule 200 mg PO QHS Qty: 180 3RF potassium chloride 20 mEq tablet extended release 20 meq PO .QOD PRN (Reason: pedal edema) Qty: 90 3RF metoprolol succinate 25 mg tablet extended release 24 hr 25 mg PO BID Qty: 180 3RF cyanocobalamin (vitamin B-12) [Vitamin B-12] 1,000 MCG tablet, sublingual 1 tab Sublingual .3 X WEEKLY Patient Comments: 07/11/16: Takes on occassion. -BR Rx Instructions: REPORTS TAKES OCCASIONALLY ferrous gluconate [Fergon] 240 mg (27 mg iron) tablet 240 mg PO DAILY colchicine (gout) 0.6 mg tablet 0.6 mg PO BID Qty: 20 0RF prednisone 20 mg tablet 40 mg PO DAILY Qty: 10 0RF Rx Instructions: Take 2 tablets daily for 5 days Qvar RediHaler 40 mcg/actuation HFA aerosol breath activated 1 inh inhalation BID Qty: 10.6 3RF Emergen-C 1,000 MG powder effervescent in packet 1,000 mg PO PRN PRN Cbd Oil 5 mg Sublingual DAILY Discontinued bisacodyl [Dulcolax (bisacodyl)] 5 mg tablet,delayed release (DR/EC) 5 mg PO ONCE Qty: 4 0RF Rx Instructions: Take per colonoscopy instructions provided by ordering providers office polyethylene glycol 3350 17 gram/dose powder 17 g PO ONCE Qty: 238 0RF Rx Instructions: Take per colonoscopy instructions provided by ordering providers office Discharge Instructions Instructions: Diverticulosis (GEN), Diverticulosis Diet (GEN) Additional Instructions: [place], we were able to complete your colonoscopy today. I did not see any signs of tumors or polyps anywhere in your large intestine. You have a fair amount of diverticulosis. As you probably already know, diverticula are weak spots that occur in the colon wall. They can become infected, and patients can get quite sick from it. When that happens, they usually have pretty significant pain on the left lower portion of their abdomen which is often times accompanied by fevers, and a general feeling of illness. During those occasions, patient should be treated with antibiotics. Hopefully, this never bothers you. I did attach some general information here regarding typical management of diverticular disease. Because of the nature of your previous polyps, I still recommend a screening colonoscopy at 5-year intervals. If your next 1 is negative, then we could consider moving to less frequent testing. If you have any questions in the meantime, please do not hesitate to call. 1. If tolerated, consume a soft, low fiber diet for 1-2 days. 2. Do not drive, drink alcohol, operate machinery, make critical decisions, or do activities that require coordination or balance for 24 hours. 3. Because air was put into your colon during the procedure, expelling air from your rectum (passing gas or farting) is normal. 4. You may not have a bowel movement for 1-3 days because of the colonoscopy prep. This is normal. 5. Go directly to the emergency room if you notice any of the following: Develop chills (warm to touch), or if you have a thermometer and your temperature is above 101 Difficulty breathing or difficultly swallowing Persistent vomiting Severe abdominal pain, other than gas cramps Severe chest pain Black, tarry stools Any bleeding ? exceeding one tablespoon 6. Call your physician if the site where your intravenous was started becomes red, swollen, painful, and warm to touch. 7. Your physician has reviewed your pre-procedure medications. Please continue to take those medications as previously ordered. You will be given specific information/education regarding any changes to your medications before leaving. Activity:: Activity as Tolerated Diet:: As Tolerated Discharge Orders Discharge Orders: Discharge Order (Routine); Ordered 04/21/23 Ordered By: Michael Lyman DS: Diagnosis Discharge Diagnosis (1) Screen for colon cancer: Status: Acute Asessment and Plan: Diverticulosis; otherwise negative screening colonoscopy
--- NOTE | 2023-04-21 14:59 | W.COLOREPORT ---
Date of service: 04/22/23 Time of Service: 11:31 Colonoscopy Report Date of procedure: 04/22/23 Pre-op diagnosis general: screening colonoscopy Post-op diagnosis procedure note: other (Diverticulosis) Procedure: Colonoscopy Surgeon: Michael Lyman Anesthesia Type: General:No Airway Estimated blood loss (mL): 0 Pathology: none sent Complications: None Disposition: same day Indications: Rodriguez is 62 years old, with a personal history of adenomatous polyps. He needs his next screening colonoscopy. Prep: Miralax/Dulcolax Procedure Start Time: 10:58 Procedure End Time: 11:16 Retraction Time: 9 Findings: Left-sided diverticulosis Procedure Description: After the induction of monitored anesthetic care, and with the patient in left lateral decubitus position, I began by performing an external anorectal exam.? Perineum and skin were normal, as was the anal verge.? There was no evidence of external hemorrhoids.? Next, I performed a digital rectal exam.? I did not appreciate any abnormal findings.? Next, I advanced a colonoscope into the rectal vault.? I performed retroflexion.? This appeared normal.? Using insufflation, I then advanced the colonoscope beyond the rectal folds and into the sigmoid colon before advancing towards the cecum.? There was extensive sigmoid diverticulosis that extended up into the descending colon. Beyond that, there were intermittent diverticula along the transverse and ascending colon as well..? The scope was noted to be in the cecum by identification of the ileocecal valve and appendiceal orifice.? I then began withdrawing the colonoscope using repeated irrigation as necessary for full evaluation of the colonic mucosa. ?Once the scope was withdrawn to the level of the rectum, great care was taken to examine portions of the rectal folds.? I did not see any signs of tumors, polyps, or any other abnormalities aside from the diverticulosis. Finally, the scope was withdrawn and the patient was brought to the same-day surgery recovery unit as the anesthetic wore off. ?The findings and instructions were shared with the patient prior to discharge. [place] Bowel Prep [place] Bowel Prep Right Colon: 2 Left Colon: 2 Transverse Colon: 2 Total Score: 6
--- NOTE | 2023-04-21 18:47 | W.ANESPRE ---
General Info Date of Service Date Performed: 04/22/23 Height: 5 ft 7 in Weight: 117.027 kg Body Mass Index (BMI): 40.4 Surgical Procedure: Operation Date: 04/22/23 10:35 Proposed Procedure Side Surgeon natalie Lyman MD Meds Allergies and Home Medications Allergies Allergy/AdvReac Type Severity Reaction Status Date / Time No Known Allergies Allergy Verified 04/22/23 09:35 Home Medication Medication Instructions Recorded cyanocobalamin (vitamin B-12) 1 tab sublingual .3 X WEEKLY 09/16/12 1,000 mcg sublingual tablet (Vitamin B-12) Cbd Oil 5 mg sublingual DAILY 09/19/17 ascorbic acid 1,000 1,000 mg PO PRN PRN 09/19/17 [id number] powder effervescent pack (Emergen-C) ferrous gluconate 240 mg (27 mg 240 mg PO DAILY 03/31/20 iron) tablet (Fergon) albuterol sulfate 90 mcg/actuation 2 puff inhalation 6XD PRN 07/30/22 aerosol inhaler (ProAir HFA) shortness of breath or wheezing #18 grams aspirin 81 mg tablet,delayed 81 mg PO DAILY #90 tabs 07/30/22 release celecoxib 200 mg capsule (Celebrex) 200 mg PO BID #60 caps 07/30/22 furosemide 20 mg tablet 10 mg (1/2 x 20 mg) PO BID PRN 07/30/22 edema #90 tabs gabapentin 100 mg capsule 200 mg (2 x 100 mg) PO QHS #180 07/30/22 caps potassium chloride 20 mEq 20 meq PO .QOD PRN pedal edema #90 07/30/22 tablet,extended release tabs metoprolol succinate 25 mg 25 mg PO BID #180 tabs 09/07/22 tablet,extended release 24 hr colchicine (gout) 0.6 mg tablet 0.6 mg PO BID #20 tabs 12/05/22 prednisone 20 mg tablet 40 mg (2 x 20 mg) PO DAILY #10 tabs 12/05/22 beclomethasone dipropionate 40 1 inh inhalation BID #10.6 grams 04/03/23 mcg/actuation HFA breath activated aerosol (Qvar RediHaler) Current Visit Medications: Current Medications Generic Name Dose Route Start Last Admin Trade Name Freq PRN Reason Stop Dose Admin Hyoscyamine Sulfate 0.125 mg 04/21/23 15:01 Hyoscyamine 0.125 Mg Sl/Oral/Chew SL 05/21/23 15:00 DIRECTED PRN Ringer's Solution 1,000 mls @ 80 mls/hr 04/22/23 06:00 IV 04/22/23 23:59 INFUSION JO IV Miscellaneous Supplies 1 each 04/22/23 06:00 Iv Access IV 04/22/23 23:59 DIRECTED JO Ondansetron HCl 4 mg 04/21/23 15:01 Ondansetron 4 Mg/2 Ml Vial IVP 05/21/23 15:00 Q4H PRN PRN Nausea / Vomiting Sodium Chloride 0 ml 04/22/23 06:00 Normal Saline Flush 10 Ml Syr IV 04/22/23 23:59 PRN PRN Sodium Chloride 0 ml 04/22/23 06:00 Normal Saline 10 Ml Vial IJ 04/22/23 23:59 DIRECTED PRN Sterile Water 0 ml 04/22/23 06:00 Water,Injection,Sterile 10 Ml Vial IJ 04/22/23 23:59 DIRECTED PRN PFSH Active Problems Active Problems: Problem Status Onset Code Screen for colon cancer Z12.11 Acute gout M10.9 Thyroid nodule E04.1 HTN (hypertension) I10 Elevated liver function tests R79.89 Macrocytosis D75.89 Pedal edema R60.0 Abnormal EKG R94.31 Hypotensive episode I95.9 Gastroesophageal reflux disease 02/20/13 K21.9 Chronic diarrhea 02/20/13 K52.9 Colon polyp 09/17/14 K63.5 Dupuytren's contracture of both hands 04/29/15 M72.0 Family history of colon cancer 07/01/14 Z80.0 History of peptic ulcer 02/20/13 Z87.11 Lactose intolerance E73.9 Obstructive sleep apnea syndrome 09/04/13 G47.33 Right ankle pain 04/29/15 M25.571 Umbilical hernia K42.9 Vitamin B 12 deficiency E53.8 Chronic pain disorder 03/05/17 G89.4 Constipation K59.00 Recurrent ventral hernia K43.2 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 External fixator Surgical History Surgical History laparoscopic ventral herniorrhaphy with lysis of adhesions (03/27/16) GASTRECTOMY (~1976) PARTIAL Colonoscopy - MAC (09/23/17) Tobacco Smoking/Tobacco Use Status: Former Tobacco Use Passive smoking exposure: No Second hand exposure: No Alcohol Alcohol Intake: current Alcohol intake frequency: 0-2 drinks per day Alcohol type: beer and wine Substance Use Substance use: Rarely Substance use type: marijuana Vital Signs and Lab Results Vital Signs Most Recent Vital Signs in EMR: Temp Pulse Resp BP Pulse Ox 36.3 C L 98 H 18 117/80 92 04/22/23 09:27 04/22/23 09:27 04/22/23 09:27 04/22/23 09:27 04/22/23 09:27 Lab Results Blood Type / Crossmatch: No Data to Display Complete Blood Count: No Data to Display Complete Metabolic Panel: No Data to Display Liver Function Panel: No Data to Display Coagulation Panel: No Data to Display Cardiac Panel: No Data to Display Arterial Blood Gas: No Data to Display Venous Blood Gas: No Data to Display Pancreas Panel: No Data to Display Thyroid Panel: No Data to Display Infectious Disease: No Data to Display Blood Cultures: No Data to Display Toxicology Panel: No Data to Display Imaging and Studies Imaging and Studies Study information below may be from another EMR and interpreted by another provider. Please see original notes in EMR for more complete details. Stress Test Summary: 08/20: ECG nondaignostic, LVEF 59%, no evidence of ischemia on imaging. Pulmonary Function Summary: 01/16: normal. Anesthesia Assessment and Plan Anesthesia History Personal History: No History of Anesthesia Complications Family History: No Family History of Anesthesia Complications Exercise Tolerance Exercise Tolerance: Metabolic Equivalents>4 Cardiac & Pulmonary Exam Cardiac Exam: Normal S1/S2 Heart Sounds Pulmonary Exam: Clear Bilateral Breath Sounds Implantable Cardiac Device Does patient have a Pacemaker or an ICD?: No Airway Exam Known Difficult Airway: No Mallampati Class: 4 Mouth Opening: Narrow (< 3cm) Thyromental Distance: Less than 3 cm Neck Range of Motion: Limited ROM Neck Circumference: Thick Teeth Condition: Normal Dentition ASA Classification ASA Score: ASA 3 Emergency Case?: No NPO Status NPO Status: NPO Clears >2 hours, Solids >8 hours Anesthesia Plan Resuscitation Status: Full Code Anesthesia Technique: General Anesthesia Airway Planned: Natural Airway Monitors Used: Standard Monitors Preoperative Comments:: 62 yo male for colo. Sig PMHx: HTN (metoprolol, furosemide), asthma (albuterol, qvar), GERD (well controlled), s/p gastrectomy (when he was 16 yo for bleeding ulcer), former smoker, occ EtOH/cannabis. prednisone (was for a gout flare up ~ 3 months ago was last day).
[2023-04-22 09:27] VITALS: BP 117/80; PULSE 98; RESP 18; TEMP 36.3; O2SAT 92
[2023-04-22] MEDS: Lactated Ringers 1,000 ML 80 ML IV (09:48)
[2023-04-22 10:01] VITALS: BMI 40.4
[2023-04-22 11:25] VITALS: BP 115/68; PULSE 93; RESP 18; TEMP 36.6; O2SAT 96
[2023-04-22 11:56] VITALS: BP 117/79; PULSE 79; RESP 18; TEMP 36.6; O2SAT 97
--- NOTE | 2023-04-22 14:16 | W.ANESPOSTOP ---
Postoperative Evaluation Date, Time and Location Date Performed: 04/22/23 Time Performed: 11:34 Patient Location: Day Surgery Unit Vital Signs Most Recent Imported Vital Signs: Most Recent Vital Signs Temp Pulse Resp BP Pulse Ox 36.6 C 79 18 117/79 97 04/22/23 11:56 04/22/23 11:56 04/22/23 11:56 04/22/23 11:56 04/22/23 11:56 Pain Score Most Recent Pain Score: Most Recent Pain Score Pain Level 0 04/22/23 11:56 Assessment Mental Status: Awake (Alert & Oriented to Patient Baseline) Airway and Respiratory Function: Patent airway with normal (patient baseline) respiratory exam Cardiovascular Function: Hemodynamically Stable Hydration Status: Adequately Hydrated Nausea & Vomiting: No Nausea or Vomiting Pain: Pt. Denies Any Pain Peripheral Nerve Block: Patient did not receive a nerve block Postoperative Comments:: Patient with short run of SVT at end of OR case, BP stable. No further runs noted. Patient denies CP/SOB/Chest pressure. Discussed care with patient and he and I are comfortable with him heading home. I did send him with SVT discharge instructions after discussing the signs and symptoms for which to call 911. Patient demonstrated understanding.
== END 2023-04-22 12:25 | disposition home or self-care (01) ==
LOC: SUR 09:16
PROVIDERS: PCP Nurse Practitioner Family; Visit Provider Surgery
PROC: 0DJD8ZZ Inspection of Lower Intestinal Tract, Via Natural or Artificial Opening Endoscopic (ICD-10-PCS; CPT 45378; principal; 2023-04-22 10:30)
DX: Z12.11 Encounter for screening for malignant neoplasm of colon (principal); I10 Essential (primary) hypertension; R94.31 Abnormal electrocardiogram [ECG] [EKG]; K21.9 Gastro-esophageal reflux disease without esophagitis; Z87.11 Personal history of peptic ulcer disease; G47.33 Obstructive sleep apnea (adult) (pediatric)
CPT/HCPCS: 45378; J2704

== ENCOUNTER 2023-08-08 03:44 | Outpatient (CLI) | payer BC, SELFPAY ==
[2023-08-08 14:25] LABS: CREATININE 1.1 mg/dL (0.70-1.30); Calculated LDL 84 mg/dL (<100); Cholesterol 211 mg/dL (<200); Estimated GFR 74.96 (mL/min/1.73m2); HDL Cholesterol 107 mg/dL (40-60); Potassium 3.8 mmol/L (3.5-5.1); TSH (W/Ref FT4) 2.93 uIU/mL (0.36-3.74); Triglyceride 102 mg/dL (<150); Vitamin B12 412 pg/mL (193-986)
== END 2023-08-08 03:45 | disposition home or self-care (01) ==
LOC: LBO 03:44
PROVIDERS: PCP Nurse Practitioner Family; Visit Provider Nurse Practitioner Family
DX: I10 Essential (primary) hypertension (principal); E53.8 Deficiency of other specified B group vitamins; Z13.220 Encounter for screening for lipoid disorders; E04.1 Nontoxic single thyroid nodule
CPT/HCPCS: 36415; 80061; 82565; 82607; 84132; 84443

== ENCOUNTER 2024-08-05 11:46 | Outpatient (CLI) | payer OTHER, SELFPAY ==
[2024-08-05 13:12] LABS: Anion Gap 6.8 mmol/L (3-11); BUN 17 mg/dL (7-18); CO2 30.2 mmol/L (21.0-32.0); Calcium 9.6 mg/dL (8.5-10.1); Calculated LDL 61 mg/dL (<100); Chloride 103 mmol/L (98-107); Cholesterol 227 mg/dL (<200); Estimated GFR 83.52 (mL/min/1.73m2); Glucose 106 mg/dL (74-106); HDL Cholesterol 157 mg/dL (>or=40); Potassium 3.8 mmol/L (3.5-5.1); Sodium 140 mmol/L (136-145); Triglyceride 46 mg/dL (<150)
[2024-08-05 22:37] LABS: PSA, Screening 0.1 ng/mL (<=4.5)
== END 2024-08-05 11:47 | disposition home or self-care (01) ==
LOC: LOS 11:46
PROVIDERS: PCP Nurse Practitioner Family; Referring Provider Nurse Practitioner Family; Visit Provider Nurse Practitioner Family
DX: I10 Essential (primary) hypertension (principal); Z13.6 Encounter for screening for cardiovascular disorders; Z12.5 Encounter for screening for malignant neoplasm of prostate; Z23 Encounter for immunization; K21.9 Gastro-esophageal reflux disease without esophagitis; K52.9 Noninfective gastroenteritis and colitis, unspecified
CPT/HCPCS: 36415; 80048; 80061; 84153